=== PATIENT | female | born 1995 | race Caucasian/White ===

== ENCOUNTER 2017-07-20 21:55 | Emergency (ER) | payer OTHER ==
[~2017-07-20] VITALS: Ht 167.6 cm; Wt 90.4 kg
[~2017-07-20 21:55] MED LIST: LBT/100 PO; PRENTAB26 PO
[2017-07-20 22:01] VITALS: TEMP 36.4; Ht 167.6 cm; Wt 90.4 kg
[2017-07-20 23:23] LABS: BASO % 0.3 %; BASO ABS # 0.02 K/uL (0-0.2); EOS % 1.4 %; EOS ABS # 0.11 K/uL (0-0.5); HEMATOCRIT 40.3 % (37-47); HEMOGLOBIN 14.1 g/dL (12.0-16.0); LYMPH % 41.1 %; LYMPH ABS # 3.19 K/uL (1.2-3.4); MEAN CELL VOLUME 92.2 fL (80-100); MEAN CORPUSCULAR HEMOGLOBIN 32.3 pg (25-34); MEAN PLATELET VOLUME 11.1 fL (7.4-10.4); MONO % 5.1 %; NEUT % 52.1 %; NEUT ABS # 4.05 K/uL (1.4-6.5); PLATELET COUNT 248 K/uL (130-400); RED CELL DISTRIBUTION WIDTH CV 12.7 % (11.5-14.5); RED CELL DISTRIBUTION WIDTH SD 42.9 fL (36.4-46.3); WHITE BLOOD COUNT 7.77 K/uL (4.8-10.8)
[2017-07-20 23:52] LABS: ALBUMIN 4.2 gm/dl (3.4-5.0); CALCIUM 8.9 mg/dl (8.5-10.1); CREATININE 0.98 mg/dl (0.60-1.20); POTASSIUM 3.5 mmol/L (3.5-5.1)
[2017-07-20 23:55] LABS: TOTAL PROTEIN 7.6 gm/dl (6.4-8.2)
[2017-07-21] MEDS ORDERED: GI COCKTAIL PO STA (02:12)
[2017-07-21] MEDS ORDERED: ACETAMINOPHEN 500 MG TAB PO STA (02:29)
[2017-07-21] MEDS ORDERED: ALUMINUM/MAGNESIUM SUSP 30 ML UDC ONE (02:34)
[2017-07-21] MEDS ORDERED: LIDOCAINE HCL 2% VISC SOLN 20 ML UDC ONE (02:34)
[2017-07-21 02:41] VITALS: BP 150/97; PULSE 88; O2SAT 98
[2017-07-21] MEDS ORDERED: OMEP40CA41 PO (02:55)
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
--- NOTE | 2017-07-21 06:35 | DIAGNOSTIC IMAGING REPORT ---
BILIARY ULTRASOUND CLINICAL HISTORY: epigastric, RUQ pain, episodic COMPARISON STUDY: CT scan performed December 2011 FINDINGS: The pancreas was nonvisualized. No hepatic masses were visualized. There is no ductal dilatation. The extrahepatic portion of the common bile duct was not visualized. There is no right-sided hydronephrosis. The gallbladder was contracted. No calculi were visualized. IMPRESSION: Technically limited study. No gallbladder calculi identified. No evidence of ductal dilatation. Nondiagnostic evaluation of the pancreas. Electronically signed by: Augusto Zhoa M.D. 07/21/2017 6:33 AM Dictated Date/Time: 07/21/2017 6:32 AM
== END 2017-07-21 03:00 | disposition home or self-care (01) ==
LOC: C.EDB 21:56 → C.EDC 07-21 03:00
DX: R10.13 Epigastric pain (principal); J45.909 Unspecified asthma, uncomplicated; I10 Essential (primary) hypertension; G43.909 Migraine, unspecified, not intractable, without status migrainosus; N83.209 Unspecified ovarian cyst, unspecified side